=== PATIENT | female | born 1985 | race Caucasian/White ===

== ENCOUNTER 2017-03-11 14:40 | Emergency (ER) | payer OTHER ==
[2017-03-11 14:47] VITALS: BP 114/81
--- NOTE | 2017-03-11 14:58 | ED Physician Documentation ---
PD HPI HEENT - Stated complaint Stated Complaint: EAR INJ - Chief complaint Chief Complaint: Heent - History obtained from History obtained from: Patient - History of Present Illness Timing - onset: How many days ago (2) Timing - duration: Days (2) Timing - details: Abrupt onset, Still present Location: Right ear Improves: Nothing Associated symptoms: No: Fever, Congestion, Rhinorrhea, Trismus, Unable to swallow, Swollen nodes, Facial swelling, Headache, Cough Similar symptoms before: Diagnosis (ruptured TM as a child) Recently seen: Not recently seen - Additional information Additional information: 31-year-old female was cleaning her ears with a Q-tip after shower and she had a towel wrapped around her head. She left the Q-tip and remove the towel rapidly and pulled her ear. She feels like she may have poked her eardrum and she is worried she may have a rupture of the TM. She will be flying in 2 days. She did have a ruptured eardrum from a Q-tip as a child she does not remember having have any specific treatment for this. Review of Systems Constitutional: denies: Fever Eyes: denies: Decreased vision Ears: reports: Ear pain, Tinnitus/ringing. denies: Loss of hearing Nose: denies: Rhinorrhea / runny nose, Congestion Throat: denies: Sore throat Respiratory: denies: Cough PD PAST MEDICAL HISTORY - Present Medications Home Medications: Ambulatory Orders Medication Instructions Recorded Confirmed No Known Home Medications [No 03/11/17 03/11/17 Known Home Medications] - Allergies Allergies/Adverse Reactions: Allergies Allergy/AdvReac Type Severity Reaction Status Date / Time duloxetine HCl * AdvReac seizures Verified 03/11/17 14:48 [From Cymbalta] PD ED PE NORMAL - Vitals Vital signs reviewed: Yes (Hypertensive mild) - General General: Alert and oriented X 3, No acute distress, Well developed/nourished - HEENT HEENT: Atraumatic, PERRL, EOMI, Other (The right TM appears intact with intact landmarks and no evidence of significant inflammation there is pain to placing the speculum into the ear canal. There is no blood in the canal there is no specific bruising to the canal. The left TM appears clear.) - Neck Neck: Supple, no meningeal sign, No bony TTP - Respiratory Respiratory: No respiratory distress - Derm Derm: Normal color, Warm and dry, No rash - Extremities Extremities: No deformity, No edema - Neuro Neuro: No motor deficit, No sensory deficit - Psych Psych: Normal mood, Normal affect Results - Vitals Vitals: Vital Signs - 24 hr 03/11/17 14:44 Temperature 36.5 C Heart Rate 75 Respiratory 16 Rate Blood Pressure 114/81 H O2 Saturation 97 Oxygen O2 Source Room air PD MEDICAL DECISION MAKING - ED course Complexity details: considered differential, d/w patient ED course: 31-year-old female with a Q-tip injury to the right ear does not appear to have ruptured the TM. I suspect the pain she is having is related to the pain in her ear canal as this is what did hurt the patient will on examination was insertion of the speculum. I discussed with the patient signs and symptoms of otitis media and reasons to follow up to the emergency department. Departure - Departure Disposition: 01 Home, Self Care Clinical Impression: Trauma of ear canal Qualifiers: Encounter type: initial encounter Qualified Code(s): S09.91XA - Unspecified injury of ear, initial encounter Condition: Stable Instructions: ED Rupture Eardrum Traumatic Follow-Up: Zia Hill ARNP [Primary Care Provider] - Comments: Today on examination of your right ear we do not find evidence of a ruptured eardrum. There does appear to be injury to the ear canal.Rupture of the eardrum for you as it is not always possible to tell a rupture that has sealed.
== END 2017-03-11 15:07 | disposition home or self-care (01) ==
LOC: ED 14:40
DX: S09.91XA Unspecified injury of ear, initial encounter (principal); W22.8XXA Striking against or struck by other objects, initial encounter
CPT/HCPCS: 99282; 99283

== ENCOUNTER 2018-12-17 11:27 | Emergency (ER) | payer OTHER ==
[2018-12-17 11:32] VITALS: BP 125/97
[2018-12-17] MEDS ORDERED: TETANUS/DIPHTHERIA/PERTUSSIS 0.5 ML SYRINGE IM ONE (11:48)
--- NOTE | 2018-12-17 11:53 | ED Physician Documentation ---
PD HPI UPPER EXT INJURY - Stated complaint Stated Complaint: HAND LAC - Chief complaint Chief Complaint: Laceration - History obtained from History obtained from: Patient - History of Present Illness Location: Left, Hand (thumb and hand and left heel abrasion), Finger Type of injury: Fall, Other (onto oyster shells) Where injury occurred: Other (beach) Timing - onset: Today Timing - duration: Minutes Timing - details: Abrupt onset, Still present Improved by: Nothing. No: Rest, Ice, Immobilization Worsened by: Palpating Associated symptoms: No: Weakness, Numbness, Tingling, Swelling, Discolored Contributing factors: No: Anticoagulated, Prior ortho surgery Similar symptoms before: Has not had sx before Recently seen: Not recently seen Review of Systems Ten Systems: 10 systems reviewed and negative Constitutional: denies: Fever Cardiac: reports: Reviewed and negative Respiratory: reports: Reviewed and negative Skin: reports: Abrasion (s), Laceration (s) Musculoskeletal: reports: Extremity pain, Extremity swelling. 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 - Present Medications Home Medications: Ambulatory Orders Medication Instructions Recorded Confirmed No Known Home Medications 03/11/17 03/11/17 - Allergies Allergies/Adverse Reactions: Allergies Allergy/AdvReac Type Severity Reaction Status Date / Time duloxetine HCl * AdvReac seizures Verified 12/17/18 11:32 [From Cymbalta] - Social History Does the pt smoke?: No Smoking Status: Never smoker Does the pt drink ETOH?: No Does the pt have substance abuse?: No - Immunizations Immunizations are current?: Yes - POLST Patient has POLST: No PD ED PE NORMAL - Vitals Vital signs reviewed: Yes - General General: Alert and oriented X 3 - HEENT HEENT: Atraumatic - Neck Neck: Supple, no meningeal sign, No JVD - Cardiac Cardiac: RRR - Respiratory Respiratory: No respiratory distress - Abdomen Abdomen: Soft, Non distended - Female Female : Deferred - Rectal Rectal: Deferred - Derm Derm: Normal color, Warm and dry, Other (three 0.5 to 1cm lacerations to L thumb) - Extremities Extremities: Other (multile small 0.5 to 1cm lacerations of the L thumb) - Neuro Neuro: Alert and oriented X 3, Normal speech. No: No motor deficit, No sensory deficit Eye Opening: Spontaneous Motor: Obeys Commands Verbal: Oriented GCS Score: 15 - Psych Psych: Normal mood, Normal affect Results - Vitals Vitals: Vital Signs - 24 hr 12/17/18 11:30 Temperature 37.1 C Heart Rate 69 Respiratory 18 Rate Blood Pressure 125/97 H O2 Saturation 99 Oxygen O2 Source Room air Procedures - Laceration (location) Finger left Other Wound type: Linear, Contaminated Neurovascular status: Sensory intact, Motor intact Anesthesia: OTH (patient refused) Wound Preparation: Irrigated copiously NS Skin layer closure: Steri strips Other: Patient tolerated well, No complications, Dressing applied, Other (bacitracin applied) Complexity: Simple PD MEDICAL DECISION MAKING - ED course Complexity details: re-evaluated patient, considered differential, d/w patient ED course: DDx - hand fracture, sprain, contusion, finger sprain, contusion, finger lacerations, abrasions. 33 y/o F with minor injuries from fall onto oyster shells when she tripped. Multiple tiny lacerations, none requiring repair. Applied dressing and steristrips. Pt stable for return to home. Updated tetanus here. Departure - Departure Disposition: 01 Home, Self Care Clinical Impression: Laceration Hand laceration Qualifiers: Encounter type: initial encounter Foreign body presence: without foreign body Laterality: left Qualified Code(s): S61.412A - Laceration without foreign body of left hand, initial encounter Condition: Stable Record reviewed to determine appropriate education?: Yes Instructions: ED Laceration Ext Skin Glue Follow-Up: Zia Hill ARNP [Primary Care Provider] - As Needed
[2018-12-17] MEDS ORDERED: BACITRACIN OINT TOP ONE (12:09)
== END 2018-12-17 12:51 | disposition home or self-care (01) ==
LOC: ED 11:27
DX: S61.412A Laceration without foreign body of left hand, initial encounter (principal); W01.198A Fall on same level from slipping, tripping and stumbling with subsequent striking against other object, initial encounter
CPT/HCPCS: 12001; 90471; 90715; 99282; 99283; A9270

== ENCOUNTER 2019-06-25 12:51 | Emergency (ER) | payer OTHER ==
--- NOTE | 2019-06-25 14:45 | ED Physician Documentation ---
PD HPI HEAD INJURY - Stated complaint Stated Complaint: HEAD INJURY - Chief complaint Chief Complaint: Neuro - History obtained from History obtained from: Patient - History of Present Illness Mechanism of head injury: Blow Where head injury occurred: Home (a fist sized rock fell from a shelf about 3-4 feet above her and struck top of head. No LOC but hurt a lot. She felt nauseated and vomited couple times about 15-20 minutes later. No visual changes. No ataxia. Feeling okay after that, except local scalp tenderness. No diffuse headache. Conversant without problems.) Timing - onset: Today (1-2 hours ago) Location of injury: Back, Top Quality of pain: Aching, Dull Associated symptoms: Nausea / vomiting. No: LOC, AMS, Neck pain Symptoms worsen with: Palpation Contributing factors: No: Anticoagulated Similar symptoms before: Has not had sx before Review of Systems Constitutional: denies: Fever Eyes: denies: Loss of vision, Decreased vision Nose: denies: Rhinorrhea / runny nose, Congestion Throat: denies: Sore throat Respiratory: denies: Cough GI: denies: Abdominal Pain, Diarrhea Skin: denies: Abrasion (s), Laceration (s) Musculoskeletal: reports: Back pain (side trapezius muscles upper back; no vertebral pain). denies: Neck pain Neurologic: denies: Focal weakness, Numbness, Difficulty speaking PD PAST MEDICAL HISTORY - Past Medical History Past Medical History: No Cardiovascular: None Neuro: None - Past Surgical History Past Surgical History: Yes /[employer]: section, Tubal ligation - Present Medications Home Medications: Ambulatory Orders Medication Instructions Recorded Confirmed No Known Home Medications 03/11/17 03/11/17 - Allergies Allergies/Adverse Reactions: Allergies Allergy/AdvReac Type Severity Reaction Status Date / Time duloxetine HCl * AdvReac seizures Verified 12/17/18 11:32 [From Cymbalta] - Social History Does the pt smoke?: No Smoking Status: Never smoker Does the pt drink ETOH?: No Does the pt have substance abuse?: No - Immunizations Immunizations are current?: Yes - POLST Patient has POLST: No PD ED PE NORMAL - Vitals Vital signs reviewed: Yes - General General: Alert and oriented X 3, No acute distress, Well developed/nourished - HEENT HEENT: PERRL, EOMI, Pharynx benign, Other (posterior vertex of head with local swelling and tenderness. No depression. Neck and thoracic spine not tender. Some tenderness in lateral muscles to side of upper back. ) - Neck Neck: Supple, no meningeal sign, No bony TTP - Cardiac Cardiac: RRR, No murmur - Respiratory Respiratory: Clear bilaterally - Derm Derm: Normal color, Warm and dry - Neuro Neuro: Alert and oriented X 3, manager order 2-12 intact, No motor deficit, No sensory deficit, Normal speech Eye Opening: Spontaneous Motor: Obeys Commands Verbal: Oriented GCS Score: 15 Results - Vitals Vitals: Oxygen O2 Source Room air PD MEDICAL DECISION MAKING - ED course Complexity details: considered differential (symptoms may be mild concussive, but she seems okay at this point. Guidelines and shared decision with patient lead to decision of no imaging.), d/w patient Departure - Departure Disposition: 01 Home, Self Care Clinical Impression: Head contusion Qualifiers: Encounter type: initial encounter Contusion of head detail: scalp Qualified Code(s): S00.03XA - Contusion of scalp, initial encounter Mild concussion Qualifiers: Encounter type: initial encounter Loss of consciousness presence/duration: without LOC Qualified Code(s): S06.0X0A - Concussion without loss of consciousness, initial encounter Condition: Stable Record reviewed to determine appropriate education?: Yes Instructions: ED Concussion Follow-Up: Zia Hill ARNP [Primary Care Provider] - Comments: Ibuprofen 3 times a day as needed for headache. Add Tylenol if needed. It does sound like mild concussive symptoms. It is good that you have resolved most of the way with an a couple of hours. Avoid vigorous activity for the next couple of days. Resume normal activity if you are feeling normal. Return if worsening symptoms and refer to the instruction sheet. Otherwise expect some mild headache on and off and perhaps slightly off and concentration for a couple of days. Discharge Date/Time: 06/25/19 15:08
[2019-06-25 15:09] VITALS: BP 110/88
== END 2019-06-25 15:08 | disposition home or self-care (01) ==
LOC: ED 12:51
DX: S06.0X0A Concussion without loss of consciousness, initial encounter (principal); S00.03XA Contusion of scalp, initial encounter; W20.8XXA Other cause of strike by thrown, projected or falling object, initial encounter; Y92.009 Unspecified place in unspecified non-institutional (private) residence as the place of occurrence of the external cause; M54.6 Pain in thoracic spine
CPT/HCPCS: 99282